=== PATIENT | female | born 1985 | race African-American/Black ===

== ENCOUNTER 2017-04-22 15:12 | Emergency (ER) | payer OTHER ==
[~2017-04-22] VITALS: Ht 154.9 cm; Wt 61.2 kg
[~2017-04-22 15:12] MED LIST: BACTRIM DS TAB1 EAC1 ORAL; CATAPRES-TTS 11 EACH TD; CATAPRES0.1 MG ORAL; CLINDAMYCIN HC300 MG ORAL; COZAAR25 MG PO; DOCUSATE SODIU100 MG PO; HYDRALAZINE HCL25 M1 PO; HYDROXYCHLOROQUINE PO; IBUPROFEN600 MG ORAL; KEFLEX500 MG ORAL; KEPPRA500 MG ORAL; KEPPRA500 MG PO; LABETALOL HCL300 MG PO; LANTUS5 UNITS SUBQ; LEVAQUIN250 M1 ORAL; MEPRON SUS750 MG/5 M PO; NORCO 10-325 T1 EACH PO; NORCO 10/3251 EA ORAL; NORCO 5-325 TA1 EACH ORAL; NORMODYNE100 MG ORAL; PHOSLO667 M1 ORAL; PLAQUENIL200 MG ORAL; PREDNISONE20 MG PO; PREDNISONE5 MG ORAL; PREDNISONE50 MG ORAL; PROTONIX40 MG ORAL; ROBAXIN-750750 MG PO; TAMIFLU75 MG ORAL; VICODIN 5-5001 EACH PO; ZYLOPRIM100 MG ORAL
[2017-04-22] MEDS ORDERED: Acetaminophen 500mg (ES) tab PO ONE (15:45)
--- NOTE | 2017-04-22 16:29 | Diagnostic Imaging Report ---
Indication: Pain Comparison: None Findings: 3 views of the right foot were obtained. No acute fractures, malalignment, erosions or periostitis are identified. Bone mineralization is within normal limits. There is narrowing of the first MTP joint. Soft tissues are unremarkable. Impression: No acute injury.
[2017-04-22] MEDS ORDERED: TYLENOL EXTRA500 MG ORAL (16:40)
[2017-04-22 16:54] VITALS: BP 125/90
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
== END 2017-04-22 16:54 | disposition home or self-care (01) ==
LOC: EMR 15:53
DX: S90.31XA Contusion of right foot, initial encounter (principal); W51.XXXA Accidental striking against or bumped into by another person, initial encounter; Y92.9 Unspecified place or not applicable; I10 Essential (primary) hypertension; Z88.0 Allergy status to penicillin
CPT/HCPCS: 99283

== ENCOUNTER 2017-07-01 16:09 | Emergency (ER) | payer OTHER ==
[~2017-07-01] VITALS: Ht 154.9 cm; Wt 55.8 kg
[~2017-07-01 16:09] MED LIST changes: +TYLENOL EXTRA500 MG ORAL
[2017-07-01] MEDS ORDERED: TYLENOL EXTRA500 MG ORAL (16:41)
[2017-07-01] MEDS ORDERED: CYCLOBENZAPRINE10 MG ORAL (16:41)
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
[2017-07-01 17:23] VITALS: BP 123/83
[2017-07-01 17:26] VITALS: BP 123/83
== END 2017-07-01 17:28 | disposition home or self-care (01) ==
LOC: EMR 16:39
DX: S39.012A Strain of muscle, fascia and tendon of lower back, initial encounter (principal); V43.62XA Car passenger injured in collision with other type car in traffic accident, initial encounter; Y92.410 Unspecified street and highway as the place of occurrence of the external cause; I10 Essential (primary) hypertension; M32.9 Systemic lupus erythematosus, unspecified; Z88.0 Allergy status to penicillin
CPT/HCPCS: 99283

== ENCOUNTER 2017-10-07 16:04 | Emergency (ER) | payer OTHER ==
[~2017-10-07] VITALS: Ht 154.9 cm; Wt 54.4 kg
[~2017-10-07 16:04] MED LIST changes: +CYCLOBENZAPRINE10 MG ORAL
--- NOTE | 2017-10-07 16:17 | Emergency Room Report ---
History of Present Illness General Chief Complaint: To Be Triaged Present Illness HPI 32YOF with 1 week of "weakness," no energy, assoc with decreased appetite. Denies Nausea, vomiting, abdominal pain, chest pain. Endorses one week of dry cough. States she had pneumonia last year. Patient states that she does on dialysis every night has been consistently doing it. Still makes urine, denies dysuria polyuria. contrary to consultant note patient is not here for lupus flare patient denies recent fever, new onset of rash. Or joint pain denies new onset of fatigue. Denies chest pain, swelling of wrist Allergies: Coded Allergies: PENICILLINS (Verified Allergy, Intermediate, HIVES, 09/19/12) AMOXICILLIN (Verified Allergy, 04/11/13) Patient History Past Medical History: renal disease, dialysis, other - lupus Past Surgical History: none Pertinent Family History: none Social History: Denies: smoking, alcohol use, drug use Now: No Immunizations: UTD Reviewed Nursing Documentation: PMH: Agreed, PSxH: Agreed Nursing Documentation-PMH Hx Hypertension: Yes Hx COPD: No - Pleural effusion, JOHANNA Hx Diabetes: No Hx Cancer: No Hx Gastrointestinal Problems: No Hx Dialysis: Yes - Tue/Thur/Sat Hx Neurological Problems: No Hx Seizures: Yes Review of Systems All Other Systems: negative except mentioned in HPI Physical Exam Sp02 EP Interpretation: reviewed, normal General Appearance: normal inspection, well appearing, no apparent distress, alert, GCS 15, non-toxic Head: normocephalic, atraumatic Eyes: bilateral eye PERRL, bilateral eye EOMI ENT: normal ENT inspection, hearing grossly normal, normal pharynx, no angioedema, normal voice, TMs + canals normal, uvula midline, moist mucus membranes Neck: normal inspection, full range of motion, supple, thyroid normal, no meningismus, no bony tend Respiratory: normal inspection, lungs clear, normal breath sounds, no rhonchi, no respiratory distress, no retraction, no accessory muscle use, no wheezing, speaking full sentences Cardiovascular #1: regular rate, rhythm, no edema, no JVD, normal capillary refill Gastrointestinal: normal inspection, normal bowel sounds, non tender, soft, no mass, no peritonitis, non-distended, no guarding, no hernia, no pulsatile mass Genitourinary: no CVA tenderness Musculoskeletal: normal inspection, back normal, normal range of motion, no calf tenderness, pelvis stable, Tanya's Sign negative Neurologic: normal inspection, alert, oriented x3, responsive, floral arranger III-XII nml as tested, motor strength/tone normal, cerebellar normal, normal gait, speech normal Psychiatric: normal inspection, judgement/insight normal, mood/affect normal, no suicidal/homicidal ideation, no delusions Skin: normal inspection, normal color, no rash Lymphatic: normal inspection, no adenopathy Medical Decision Making Diagnostic Impression: Primary Impression: Weakness Additional Impression: CKD (chronic kidney disease) requiring chronic dialysis ER Course CXR negative for PNA Labs: H&H stable. Mild leuks elevated (however has been elevated all previous visits); troponin elevated but WNL, likely d/t CKD. Unlikely ACS given no chest pain or SOB Creatinine is 12. Much elevated from previous baseline. Patient states she has labs checked once a month, last checked beginning of Sep. DDoesnt know her baseline. K is normal I offered admission for possible HD and recheck of labs but patient prefers to call investments manager tomorrow and recheck labs - was given copy of labs done here today. Patient comfortable, talking on phone, with boyfriend No acute distress No definite weakness to explain patient's weakness, ?viral syndrome Vitals stable on serial exam Given well appearance, otherwise normal exam, labwork and imaging, patient is stable for DC home, and patient actually prefers to go home as well ER course: Patient has remained stable during ED stay. Disposition: Patient is to be discharged to home. Patient is instructed to follow up with their primary care doctor within 5 days. Patient is instructed to follow up with investments manager TOMORROW Strict return precautions discussed with patient such as fever, chills, worsening/severe pain, nausea, vomiting, which may indicate severe illness. Patient verbalizes understanding and agrees with plan. Please note that this Emergency Department Report was dictated using [employer] transition coordinator technology software, occasionally this can lead to erroneous entry secondary to interpretation by the dictation equipment EKG Diagnostic Results Rate: tachycardiac Rhythm: NSR ST Segments: no acute changes ASA given to the pt in ED: No Rhythm Strip Diag. Results EP Interpretation: yes Rate: 109 Rhythm: NSR, no PVC's, no ectopy Chest X-Ray Diagnostic Results Chest X-Ray Diagnostic Results : Chest X-Ray Ordered: Yes # of Views/Limited/Complete: 1 View Indication: Other - WEAKNESS Interpretation: no consolidation, no effusion, no pneumothorax, no acute cardiopulmonary disease Impression: No acute disease Electronically Signed by: Dr Mikael Tabares MD Status: improved Disposition: HOME, SELF-CARE MIKAEL TABARES M.D. Oct 07, 2017 16:17
--- NOTE | 2017-10-07 16:58 | Diagnostic Imaging Report ---
Indication: Shortness of breath Technique: One view of the chest Comparison: 11/12/2015 Findings: Inspiration is suboptimal. Lungs and pleural spaces grossly clear. Heart is borderline enlarged. Previously demonstrated tunneled dialysis catheter is no longer evident previously demonstrated interstitial edema is no longer evident Impression: No definite acute process
[2017-10-07 17:09] LABS: BASOPHILS % (AUTO) 0.9 % (0.0-2.0); EOSINOPHILS % (AUTO) 0.7 % (0.0-3.0); HEMATOCRIT 39.9 % (37.0-47.0); HEMOGLOBIN 12.3 G/DL (12.0-16.0); LYMPHOCYTES % (AUTO) 25.6 % (20.0-45.0); MEAN CORPUSCULAR VOLUME 96 FL (80-99); MONOCYTES % (AUTO) 11.8 % (1.0-10.0); PLATELET COUNT 529 K/UL (150-450); RED BLOOD COUNT 4.17 M/UL (4.20-5.40); RED CELL DISTRIBUTION WIDTH 17.3 % (11.6-14.8); WHITE BLOOD COUNT 13.1 K/UL (4.8-10.8)
[2017-10-07 17:29] LABS: ANION GAP 12 mmol/L (5-15); BLOOD UREA NITROGEN 33 mg/dL (7-18); CALCIUM 8.9 MG/DL (8.5-10.1); CARBON DIOXIDE 30 MMOL/L (21-32); CHLORIDE 96 MMOL/L (98-107); CREATININE 12.1 MG/DL (0.55-1.30); POTASSIUM 3.8 MMOL/L (3.5-5.1); SODIUM 138 MMOL/L (136-145)
[2017-10-07 17:38] VITALS: BP 102/74
[2017-10-07 17:44] LABS: ALANINE AMINOTRANSFERASE < 6 U/L (12-78); ALBUMIN 2.5 G/DL (3.4-5.0); ALBUMIN/GLOBULIN RATIO 0.5 (1.0-2.7); ALKALINE PHOSPHATASE 61 U/L (46-116); ASPARTATE AMINO TRANSFERASE 33 U/L (15-37); BILIRUBIN,TOTAL 0.4 MG/DL (0.2-1.0); CKMB 0.6 NG/ML (0.0-3.6); CREATINE KINASE 68 U/L (26-308)
[2017-10-07 18:12] VITALS: BP 102/74
--- NOTE | 2017-10-18 13:58 | Cardiology Report ---
APPROVED REPORT EKG Measurement Heart [id number] Sinus tachycardia Biatrial enlargement Left axis deviation Pulmonary disease pattern Left ventricular hypertrophy Abnormal ECG
== END 2017-10-07 17:50 | disposition home or self-care (01) ==
LOC: EMR 16:45
DX: R53.1 Weakness (principal); I12.0 Hypertensive chronic kidney disease with stage 5 chronic kidney disease or end stage renal disease; N18.6 End stage renal disease; Z88.0 Allergy status to penicillin; M32.9 Systemic lupus erythematosus, unspecified
CPT/HCPCS: 36415; 71045; 80053; 82550; 82553; 83880; 84484; 85025; 93005; 99284